=== PATIENT | male | born 1970 ===

== ENCOUNTER 2016-10-07 06:18 | Day surgery (SDC) | payer OTHER ==
[2016-10-07 10:35] VITALS: BP 109/61
== END 2016-10-07 10:25 | DRG 352 ==
LOC: ORM 06:18
PROVIDERS: ATTEND Surgery
PROC: 0YU50JZ Supplement Right Inguinal Region with Synthetic Substitute, Open Approach (ICD-10-PCS; principal; 2016-10-07)
DX: K40.90 Unilateral inguinal hernia, without obstruction or gangrene, not specified as recurrent (principal)